=== PATIENT | male | born 1995 | race Caucasian/White ===

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

== ENCOUNTER → 2017-01-26 | Outpatient (CLI) | payer OTHER ==
[~2017-01-26] MED LIST changes: -HYDR-5688 PO
--- NOTE | 2017-01-26 11:14 | DIAGNOSTIC IMAGING REPORT ---
RIGHT ANKLE MIN 3 VIEWS CLINICAL HISTORY: Right ankle fracture COMPARISON: 11/03/2016 DISCUSSION: There is a healing distal fibular fracture. There is no change in alignment. No tibial fractures are visualized. IMPRESSION: Progressive healing of the nondisplaced distal fibular fracture Electronically signed by: Chato Baca M.D. 01/26/2017 11:12 AM Dictated Date/Time: 01/26/2017 11:11 AM
== END | disposition home or self-care (01) ==
LOC: C.RDSM 12:27
PROVIDERS: ATTEND Physician Assistant
DX: Z09 Encounter for follow-up examination after completed treatment for conditions other than malignant neoplasm (principal); S82.891A Other fracture of right lower leg, initial encounter for closed fracture; X58.XXXA Exposure to other specified factors, initial encounter